=== PATIENT | male | born 1955 | race Caucasian/White ===

== ENCOUNTER → 2016-11-27 | Outpatient (CLI) | payer OTHER ==
[~2016-11-27] MED LIST: ADVA100A INH; ASPI81TA19 PO; ATOR40TA16 PO; AZIT250T3 PO; CLOP75TA PO; ETHA400T PO; METO25TA3 PO; NYST1000 SWISH-SWAL; RIFA300C2 PO; UMEC1INH INH
--- NOTE | 2016-12-11 10:48 | RSPPFT ---
DATE OF PROCEDURE: 11/27/16 COMMENTS: Spirometry with FVC of 2.9 predicted 4.2, FEV1 of 1.2 predicted 3.0, FEV1/FVC ratio 42% predicted 70%. Lung volumes show severe air trapping with RV at 5.0 predicted 2.2. DLCO is 87% of predicted. IMPRESSION: On the basis of the above, patient has a severe obstructive lung defect with no response to acutely inhaled bronchodilator. Severe air trapping is present.
== END ==
LOC: HRSP 07:51
PROVIDERS: ATTEND Internal Medicine Pulmonary Disease
DX: J44.9 Chronic obstructive pulmonary disease, unspecified (principal)
CPT/HCPCS: 94060; 94620; 94726; 94729